=== PATIENT | female | born 1955 | race Caucasian/White ===

== ENCOUNTER → 2017-05-27 | Day surgery (SDC) | payer OTHER ==
[~2017-05-27] MED LIST: AMLODIPINE BESY10 MG PO; ASPIRIN EC81 M1 PO; CHANTIX PO; GLIMEPIRIDE2 MG PO; GLUCOTROL PO; IRBESARTAN-HCT1 EAC1 PO; LIPITOR20 MG PO
--- NOTE | ~2017-05-27 | OR ---
Unit #: [id number] #: [id number] Patient: KAITLYN RUTLEDGE [id number] [address] [place], [place] [address] [id number] O MR#: [id number] NAME: KAITLYN RUTLEDGE ROOM: Date of Procedure: 05/27/2017 Admission Date: 05/27/2017 Surgeon: Charbel Casarez M.D. : 1955 Attending Physician: Charbel Casarez M.D. Primary Care Physician: Braxton Meneses M.D. OPERATIVE REPORT PREOPERATIVE DIAGNOSIS Screening colonoscopy. POSTOPERATIVE DIAGNOSIS Screening colonoscopy. PROCEDURES PERFORMED 1. Colonoscopy to cecum. 2. Polypectomy with electrocautery snare at 15 cm and 10 cm. ANESTHESIA Monitored anesthesia care. FINDINGS The patient was found to have a few scattered sigmoid diverticula. The polyp was excised with electrocautery snare at 15 cm and 10 cm. Mild internal hemorrhoids were seen. SPECIMENS Sent to pathology. COMPLICATIONS None apparent. CONDITION The patient tolerated the procedure well. INDICATIONS FOR PROCEDURE The patient is a 61-year-old white female, who presents at this time for screening colonoscopy. DESCRIPTION OF PROCEDURE After obtaining informed consent, the patient was brought to endoscopy suite and after adequate monitored anesthesia care, had the colonoscope placed through the anus and slowly advanced to the level of the cecum without difficulty with the lumen always in view. The cecum was normal as was the ileocecal valve. The ascending colon was normal as was the hepatic flexure, transverse colon, splenic flexure, and descending colon. The sigmoid colon had a few scattered diverticula present. They were not very numerous. At 15 cm, there was a small 3 to 4 mm polyp present. It was excised completely with the electrocautery snare, retrieved with a Unit #: [id number] #: [id number] Patient: KAITLYN RUTLEDGE mucus trap, and sent to pathology. There was another polyp was found at approximately 10 cm. It was 5 to 6 mm in size. It was excised completely with electrocautery snare with good hemostasis, retrieved and sent to pathology. The rectum was normal and on retroflexing in the rectum to the anorectal junction, there were some mild internal hemorrhoids. The scope was removed without difficulty. On digital examination, there was good sphincter tone. No masses palpable. The patient went from the endoscopy suite to the recovery area in stable condition. RECOMMENDATIONS High-fiber diet, lots of liquids, tucks or wipes p.r.n. Diverticular sheet given. Call Saturday for pathology. Dictated by... Zay Ross/lianna TD: 05/27/2017 18:25 JOB #: [id number] CC: Braxton Meneses M.D. [facility] OPERATIVE REPORT Page 1 of 1 X Charbel Casarez MD X PROCEDURE OPERATIVE NOTE
== END | disposition home or self-care (01) ==
LOC: COPS 10:43
DX: Z12.11 Encounter for screening for malignant neoplasm of colon (principal); K63.5 Polyp of colon; K57.30 Diverticulosis of large intestine without perforation or abscess without bleeding; K64.8 Other hemorrhoids; K21.9 Gastro-esophageal reflux disease without esophagitis; E11.9 Type 2 diabetes mellitus without complications; Z79.84 Long term (current) use of oral hypoglycemic drugs; M54.9 Dorsalgia, unspecified; M25.569 Pain in unspecified knee; Z87.891 Personal history of nicotine dependence; Z79.82 Long term (current) use of aspirin; Z79.899 Other long term (current) drug therapy; Z80.8 Family history of malignant neoplasm of other organs or systems
CPT/HCPCS: 82947; 88300; 88305